=== PATIENT | male | born 1985 | race Caucasian/White ===

== ENCOUNTER 2019-09-16 21:57 | Emergency (ER) | payer SELFPAY ==
[~2019-09-16] VITALS: Ht 180.3 cm; Wt 97.1 kg
[2019-09-16 23:21] LABS: Urine Bacteria NONE SEEN /hpf (None Seen); Urine Blood Negative /uL (Negative); Urine Specific Gravity 1.024 (1.001-1.035); Urine WBC 10 /hpf (0 - 3)
[2019-09-17 01:55] VITALS: BP 135/84
[2019-09-18 05:06] LABS: RPR Non Reactive (Non Reactive)
== END 2019-09-17 02:00 | disposition home or self-care (01) ==
LOC: ER 22:00
DX: N47.1 Phimosis (principal); B37.9 Candidiasis, unspecified; F12.10 Cannabis abuse, uncomplicated
CPT/HCPCS: 81001; 86592

== ENCOUNTER 2019-10-21 10:24 | Emergency (ER) | payer MEDICAID ==
[~2019-10-21] VITALS: Ht 180.3 cm; Wt 97.1 kg
[2019-10-21 13:26] VITALS: BP 145/87
[2019-10-21] MEDS ORDERED: cefTRIAXone SOD 1,000 MG VL IM ONE (14:15)
[2019-10-21] MEDS ORDERED: IBUPROFEN 600 MG TAB PO ONE (14:15)
== END 2019-10-21 15:03 | disposition home or self-care (01) ==
LOC: ER 10:26
DX: L03.115 Cellulitis of right lower limb (principal); J45.909 Unspecified asthma, uncomplicated
CPT/HCPCS: 96372; 99283; J0696

== ENCOUNTER 2021-09-23 16:58 | Emergency (ER) | payer MEDICAID ==
[~2021-09-23] VITALS: Ht 180.3 cm; Wt 95.3 kg
[2021-09-23 17:01] VITALS: BP 132/90
== END 2021-09-24 00:21 | disposition left against medical advice (07) ==
LOC: ER 16:58
DX: R21 Rash and other nonspecific skin eruption (principal); Z53.21 Procedure and treatment not carried out due to patient leaving prior to being seen by health care provider